=== PATIENT | female | born 1965 | race Caucasian/White ===

== ENCOUNTER 2016-11-02 14:36 | Emergency (ER) | payer BC ==
--- NOTE | ~2016-11-02 | ER ---
PATIENT'S NAME: JAMILAH CARBAJAL [facility] AGE: 51 Y [address] ROOM: [place] [address] LOCATION: [facility] ADMIT DATE: 11/02/2016 ER/Outpatient Report DISCHARGE DATE: 11/02/2016 FAMILY PHYSICIAN: Marvel Vaca MD ATTENDING PHYSICIAN: Roberto Walker CHIEF COMPLAINT: General malaise with ketones in the urine. 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 She has noticed over the last few days that she has had increasing ketones in her urine and she has felt weak and tired since Wednesday. She notes that she had otherwise been doing well and her diabetes was just not well enough controlled. She had not been taking medications secondary to financial reasons. However, about or Wednesday, she began taking Januvia again, failed to control her sugars. Since then, she has progressively felt worse and worse. She is concerned that she may have DKA, but she notes her sugars have been relatively well controlled. PAST MEDICAL HISTORY: Documented on the record and reviewed by me. SOCIAL HISTORY: Documented on the record and reviewed by me. MEDICATIONS: Documented on the record and reviewed by me. ALLERGIES: DOCUMENTED ON THE RECORD AND REVIEWED BY ME. REVIEW OF SYSTEMS: All systems reviewed and negative except as noted in the HPI. PHYSICAL EXAMINATION: VITAL SIGNS: Blood pressure 133/77, pulse is 70, respiratory rate is 20, temperature 97.6, SpO2 is 97% on room air. Pain is 0/10. GENERAL: An age appropriate female, scared appearance on the exam table, no apparent pain or distress. NEUROLOGIC: Awake and alert. GCS is 15. No focal deficits. No asymmetry on exam. No gait abnormalities appreciated. HEENT: Normocephalic, atraumatic. Eyes are PERRL. Oropharynx is clear. NECK: Supple. Trachea is midline. CHEST: Heart is regular rate and rhythm with no murmurs. LUNGS: Clear to auscultation bilateral. No rhonchi, wheezes, or rales. PATIENT'S NAME: JAMILAH CARBAJAL [facility] AGE: 51 Y [address] ROOM: [place] [address] LOCATION: [facility] ADMIT DATE: 11/02/2016 ER/Outpatient Report DISCHARGE DATE: 11/02/2016 FAMILY PHYSICIAN: Marvel Vaca MD ATTENDING PHYSICIAN: Roberto Walker ABDOMEN: Soft, nontender, and nondistended. No rebound or guarding. BACK: Normal to inspection and palpation. EXTREMITIES: Warm, well-formed, well-perfused with no obvious abnormalities. SKIN: Clean, dry, and intact. LABORATORY AND X-RAY DATA: Right upper quadrant ultrasound reveals a fatty liver, otherwise unremarkable. Chest x-ray is unremarkable per my review. Urinalysis with no evidence of infection. Serum white count 12.4, hemoglobin 15, platelets 218. CMS: Sodium 133, potassium 4.4, chloride is 103, CO2 is 18. Anion gap is 12. Glucose 107, AST and ALT are 80 and 98 respectively. GFR is greater than 90. CRP is 0.35. Free T4 is 1.0. TSH is 0.749. Beta-hydroxybutyrate is 28.7. HCG is 6, procalcitonin is 0.05. Venous blood gas: PH 7.40, pCO2 is 30, bicarb is 18.6, and lactate is 1.3. IMPRESSION: 1. Ketosis secondary to Januvia without acidosis or hyperglycemia. 2. Detectable beta HCG. EMERGENCY DEPARTMENT COURSE: The patient was seen and evaluated as above. She states she has not had a period for several years, but still has her uterus and ovaries and had her tubes tied, but is sexually active. She denies any vaginal discharge or bleeding. Based on the overall presentation, I was initially concerned about diabetic complication including DKA or HHS. However, the patient is not acidotic and does not have elevated glucose and for those reasons, the above diagnoses cannot be entertained. After further evaluation and confirmation of the patient's medications, the initiation of Januvia seems to correlate with the onset of her symptoms. Brief review of the literature reveals that the SGL T2 receptor medications have been known to induce ketosis. As there is no current metabolic derangement with this, I am recommending the patient stop that medication and follow up with Dr. Vaca within 24 hours. She remained hemodynamically stable and was given a liter of fluid. We will have the patient take the next day off. Her transaminases were slightly elevated higher than they had been previously and thus a right upper quadrant ultrasound was obtained and unremarkable. No evidence of biliary disease on labs or exam with history. All questions were answered and the patient was ultimately discharged in stable condition. MD RICKY BECKWITH/quique PATIENT'S NAME: JAMILAH CARBAJAL [facility] AGE: 51 Y [address] ROOM: [place] [address] LOCATION: [facility] ADMIT DATE: 11/02/2016 ER/Outpatient Report DISCHARGE DATE: 11/02/2016 FAMILY PHYSICIAN: Marvel Vaca MD ATTENDING PHYSICIAN: Roberto Walker /[id number] d: t: 11/03/16 0816, OUTPATIENT REPORT
[~2016-11-02 14:36] MED LIST: BACTRIM DS1 TAB PO; GLUCOPHAGE500 MG PO; KEFLEX500 MG PO; LOTENSIN10 MG PO; SSD (THERMAZENE25 GM TOP; ULTRAM50 MG PO
[2016-11-02 15:17] LABS: BICARBONATE 18.6 mmol/L (18.0-23.0); LACTATE 1.3 mEq/L (0.50-1.60); PCO2 30 mmHg (35-45); PO2 87 mmHg (80-90)
[2016-11-02 15:21] LABS: BASOPHIL % 0.3 %; EOSINOPHIL # 0.1 K/uL (0.0-0.5); EOSINOPHIL % 1.1 %; HEMATOCRIT 42.5 % (33.0-46.0); IMMATURE GRANULOCYTE % 0.2 %; LYMPHOCYTE # 2.5 K/uL (0.8-4.0); LYMPHOCYTE % 20.4 %; MCH 30.7 pg (27.0-34.0); MCHC 35.3 gm/dL (32.0-36.5); MCV 87.1 fl (83.0-98.0); MONOCYTE # 0.8 K/uL (0.0-1.0); MONOCYTE % 6.3 %; MPV 11.2 fl (9.4-12.4); NEUTROPHIL # (ANC) 8.9 K/uL (1.8-7.8); NEUTROPHIL % 71.7 %; NRBC % 0 /100WBC (0-0.00); PLATELET COUNT 218 K/uL (150-450); RBC 4.88 M/uL (3.50-5.50); RDW-CV 12.6 % (11.9-14.6); WBC 12.4 K/uL (4.0-11.0)
[2016-11-02 15:39] LABS: ALBUMIN 4.1 gm/dL (3.5-5.0); ALK PHOS 69 IU/L (33-138); ALT 98 IU/L (12-78); ANION GAP 16.4 (10.0-19.0); AST 80 IU/L (10-40); BLOOD UREA NITROGEN 17 mg/dL (6-24); CALCIUM 9.1 mg/dL (8.5-10.5); CHLORIDE 103 mMol/L (96-110); CO2 18 mMol/L (22-32); CREATININE 0.7 mg/dL (0.5-1.1); POTASSIUM 4.4 mMol/L (3.7-5.1); SODIUM 133 mMol/L (135-145); TOTAL BILIRUBIN 0.6 mg/dL (0.0-1.5); TOTAL PROTEIN 7.6 g/dL (6.0-8.4)
[2016-11-02 17:13] LABS: BILIRUBIN URINE NEGATIVE (NEGATIVE); BLOOD URINE NEGATIVE /UL (NEGATIVE); COLOR URINE YELLOW (YELLOW); GLUCOSE URINE 1000 mg/dL (NEGATIVE); KETONE URINE 15 mg/dL (NEGATIVE); LEUKOCYTES URINE NEGATIVE /UL (NEGATIVE); NITRITE URINE NEGATIVE (NEGATIVE); PROTEIN URINE NEGATIVE (NEGATIVE); TURBIDITY URINE CLEAR (CLEAR); UROBILINOGEN URINE NORMAL (NORMAL)
== END 2016-11-02 18:30 | disposition disaster alternative care site (69) ==
LOC: GMED 14:36
PROVIDERS: Emergency Medicine
DX: E88.89 Other specified metabolic disorders (principal); T38.3X5A Adverse effect of insulin and oral hypoglycemic [antidiabetic] drugs, initial encounter; I10 Essential (primary) hypertension; E11.9 Type 2 diabetes mellitus without complications; F17.210 Nicotine dependence, cigarettes, uncomplicated; Z79.84 Long term (current) use of oral hypoglycemic drugs; Z79.899 Other long term (current) drug therapy
CPT/HCPCS: J7030